=== PATIENT | male | born 1935 | race Caucasian/White ===

== ENCOUNTER → 2016-11-08 | Outpatient (REF) | payer MEDICARE, BC | LOC: M LAB REF 17:04 | PROVIDERS: ATTEND Internal Medicine Pulmonary Disease | DX: J84.10 Pulmonary fibrosis, unspecified (principal) ==

== ENCOUNTER → 2018-03-11 | Outpatient (REF) | payer MEDICARE, BC ==
[2018-03-11 14:00] LABS: VITAMIN B12 LEVEL 385 PG/ML
[2018-03-11 14:01] LABS: FOLATE 7.7 NG/ML
[2018-03-15 00:07] LABS: VITAMIN B6,PYRIDOXAL PHOSPHATE 6.8 ug/L (5.3-46.7); VITAMIN E(ALPHA TOCOPHEROL) 8.1 mg/L (9.0-29.0); VITAMIN E(GAMMA TOCOPHEROL) 1.4 mg/L (0.5-4.9)
== END ==
LOC: M LABNEURO 09:44
DX: E03.9 Hypothyroidism, unspecified (principal); E53.8 Deficiency of other specified B group vitamins
CPT/HCPCS: 82746